=== PATIENT | female | born 1965 | race Caucasian/White ===

== ENCOUNTER → 2024-02-04 06:22 | Day surgery (SDC) | payer BC, SELFPAY | LOC: GI 06:22 | PROVIDERS: ATTENDING PHYSICIAN Specialist; FAMILY PHYSICIAN Internal Medicine | DX: Z12.11 Encounter for screening for malignant neoplasm of colon (principal); Z86.010 Personal history of colon polyps | CPT/HCPCS: G0105 ==

== ENCOUNTER → 2024-11-03 13:54 | Outpatient (REF) | payer BC, SELFPAY | LOC: HWRCS 13:54 | PROVIDERS: ATTENDING PHYSICIAN Internal Medicine Cardiovascular Disease; FAMILY PHYSICIAN Internal Medicine | DX: R07.89 Other chest pain (principal) | CPT/HCPCS: 93306 ==

== ENCOUNTER → 2024-11-04 10:00 | Outpatient (REF) | payer BC, SELFPAY | LOC: RCS 10:00 | PROVIDERS: ATTENDING PHYSICIAN Internal Medicine Cardiovascular Disease; FAMILY PHYSICIAN Internal Medicine | DX: R07.89 Other chest pain (principal) | CPT/HCPCS: 93017 ==

== ENCOUNTER → 2024-12-01 09:50 | Outpatient (REF) | payer BC, SELFPAY | LOC: HWRAD 09:50 | PROVIDERS: ATTENDING PHYSICIAN Internal Medicine | DX: R06.2 Wheezing (principal); R09.89 Other specified symptoms and signs involving the circulatory and respiratory systems; R07.89 Other chest pain | CPT/HCPCS: 71046 ==

== ENCOUNTER → 2024-12-08 12:08 | Outpatient (REF) | payer BC, SELFPAY | LOC: RSP 12:08 | PROVIDERS: ATTENDING PHYSICIAN Internal Medicine | DX: R06.02 Shortness of breath (principal); R06.2 Wheezing | CPT/HCPCS: 94727; 94729; 88738; 94010 ==

== ENCOUNTER → 2025-02-01 12:38 | Outpatient (REF) | payer BC, SELFPAY | LOC: HWWDC 12:38 | PROVIDERS: ATTENDING PHYSICIAN Internal Medicine | DX: Z12.31 Encounter for screening mammogram for malignant neoplasm of breast (principal) | CPT/HCPCS: 77063; 77067 ==